=== PATIENT | male | born 1960 | race African-American/Black ===

== ENCOUNTER 2017-12-19 14:12 | Inpatient (IN) | payer OTHER ==
[2017-12-19 16:47] VITALS: BMI 19.5
[2017-12-19] MEDS ORDERED: MELATONIN 5 MG TABLETS PO PRN (22:00)
--- NOTE | 2017-12-19 22:20 | HP ---
CIWA Score - CIWA Score Nausea/Vomitin Muscle Tremors: 4-Moderate,w/Arms Extend Anxiety: 1-Mildly Anxious Agitation: 3 Paroxysmal Sweats: 3 Orientation: 3-Disoriented Date>2 days Tacttile Disturbances: 3-Moderate Itch/Numb/Burn Auditory Disturbances: 0-None Visual Disturbances: 1-Very Mild Sensitivity Headache: 2-Mild CIWA-Ar Total Score: 23 Admission ROS S - HPI Chief Complaint: C/O WITHDRAWAL SX'S. WOULD LIKE TO DETOX FROM ALCOHOL Allergies/Adverse Reactions: Allergies Allergy/AdvReac Type Severity Reaction Status Date / Time No Known Allergies Allergy Verified 12/19/17 17:06 History of Present Illness: 57 Y.O. MALE WITH LONG HX/O ALCOHOLISM HERE FOR DETOX. CLIENT IS KNOWN TO THIS PROGRAM. LAST HERE 11/24/2014-11/29/2014 WHERE HE LEFT AMA FOR PERSONAL REASONS. DENIES ANY INPATIENT TXMENT SINCE THEN. SELF REFERRED. DENIES ANY SIGNIFICANT CLEAN TIME/SOBRIETY. C/O WITHDRWAL SX'S NOTED CIWA 23. DENIES HX/O SEIZURES, PAST/PRESNT HX/O SI/HI, BLACKOUTS, PMHX: HIV, PSYCH: DENIES BUT FEELS DEPRESSED Exam Limitations: No Limitations - Ebola screening Have you traveled outside of the country in the last 21 days: No (N) Have you had contact with anyone from an Ebola affected area: No Have you been sick,other than usual withdrawal symptoms: No Do you have a fever: No - Review of Systems Constitutional: Chills, Loss of Appetite, Malaise (LEG CRAMPS), Night Sweats, Unintentional Wgt. Loss EENT: reports: No Symptoms Reported Respiratory: reports: No Symptoms reported Cardiac: reports: No Symptoms Reported GI: reports: Nausea, Vomiting : reports: No Symptoms Reported Musculoskeletal: reports: Back Pain (CHRONIC) Integumentary: reports: No Symptoms Reported Neuro: reports: No Symptoms reported Endocrine: reports: No Symptoms Reported Hematology: reports: No Symptoms Reported Psychiatric: reports: Depressed Other Systems: Reviewed and Negative Patient History - Patient Medical History Hx Anemia: No Hx Asthma: No Hx Chronic Obstructive Pulmonary Disease (COPD): No Hx Cancer: No Hx Cardiac Disorders: No Hx Congestive Heart Failure: No Hx Hypertension: No Hx Hypercholesterolemia: No Hx Pacemaker: No HX Cerebrovascular Accident: No Hx Seizures: No Hx Diabetes: No Hx Gastrointestinal Disorders: No Hx Liver Disease: No Hx Genitourinary Disorders: No Hx Sexually Transmitted Disorders: Yes (HIV + since 2002) Hx Renal Disease (ESRD): No Hx Thyroid Disease: No Hx Human Immunodeficiency Virus (HIV): Yes (dx'ed 2002 , last cd4 101, vl undetectable 11/01/14) Hx Hepatitis C: No Hx Depression: Yes Hx Suicide Attempt: No Hx Bipolar Disorder: No Hx Schizophrenia: No Other Medical History: DENIES - Patient Surgical History Past Surgical History: No Hx Neurologic Surgery: No Hx Cataract Extraction: No Hx Cardiac Surgery: No Hx Lung Surgery: No Hx Breast Surgery: No Hx Breast Biopsy: No Hx Abdominal Surgery: No Hx Appendectomy: No Hx Cholecystectomy: No Hx Genitourinary Surgery: No Hx Orthopedic Surgery: No Anesthesia Reaction: No - PPD History Previous Implant?: Yes Documented Results: Negative w/proof Implanted On Prior [facility] Admission?: Yes Date: 11/10/14 Results: 0mm PPD to be Administered?: Yes - Smoking Cessation Smoking history: Current every day smoker Have you smoked in the past 12 months: Yes Aproximately how many cigarettes per day: 9 Cigars Per Day: 0 Hx Chewing Tobacco Use: No Initiated information on smoking cessation: Yes 'Breaking Loose' booklet given: 12/19/17 - Substance & Tx. History Hx Alcohol Use: Yes Hx Substance Use: Yes Substance Use Type: Alcohol, Cocaine Hx Substance Use Treatment: Yes ([facility]) - Substances Abused Alcohol Route: Oral Frequency: Daily Amount used: liquor- 3 PINTS , beer- 2 six pack Age of first use: 15 Date of Last Use: 12/19/17 (2 PINTS) Crack Route: Smoking Frequency: Daily Amount used: 4 bags Age of first use: 37 Date of Last Use: 12/18/17 Family Disease History - Family Disease History Family Disease History: Diabetes: Brother (x2 2nd aids ), Sister, [place]: Father (brain tumor ), Other: Mother ( etoh related ) Admission Physical Exam S - Vital Signs Vital Signs: Vital Signs - 24 hr 12/19/17 16:45 Temperature 97.9 F Pulse Rate 90 Respiratory 19 Rate Blood Pressure 133/92 - Physical General Appearance: Yes: Appropriately Dressed, Moderate Distress, Thin, Tremorous, Anxious HEENTM: Yes: EOMI, Normocephalic, Normal Voice, PAPO, Pharynx Normal Respiratory: Yes: Chest Non-Tender, Lungs Clear, Normal Breath Sounds, No Respiratory Distress, No Accessory Muscle Use Neck: Yes: No masses,lesions,Nodules, Supple, Trachea in good position Breast: Yes: Breast Exam Deferred Cardiology: Yes: Regular Rhythm, Regular Rate, S1, S2 Abdominal: Yes: Non Tender, Soft, Protuberent Genitourinary: Yes: Other (NO C/O) Back: Yes: Normal Inspection Musculoskeletal: Yes: full range of Motion, Gait Steady, Back pain (CYHRONIC INTERMITTENT) Extremities: Yes: Normal Range of Motion, Non-Tender, Tremors Neurological: Yes: sales development consultant II-XII NML intact, Fully Oriented, Alert, Motor Strength 5/5, Depressed Affect Integumentary: Yes: Dry, Warm Lymphatic: Yes: Within Normal Limits - Diagnostic (1) Alcohol dependence with uncomplicated withdrawal Current Visit: Yes Status: Acute (2) Cocaine abuse, uncomplicated Current Visit: Yes Status: Chronic (3) Substance induced mood disorder Current Visit: Yes Status: Suspected (4) Weight loss Current Visit: Yes Status: Chronic (5) AIDS (acquired immune deficiency syndrome) Current Visit: Yes Status: Chronic (6) Nicotine dependence Current Visit: Yes Status: Chronic Qualifiers: Nicotine product type: cigarettes Substance use status: uncomplicated Qualified Code(s): F17.210 - Nicotine dependence, cigarettes, uncomplicated Cleared for Admission [facility] - Detox or Rehab [facility] Level of Care: Medically Managed Detox Regimen/Protocol: Librium Claeared for Rehab Admission: No S Breath Alcohol Content Breath Alcohol Content: 0.094 Urine Drug Screen - Results Drug Screen Negative: No Urine Drug Screen Results: JANNA-Cocaine
[2017-12-19] MEDS ORDERED: LOPERAMIDE HCL 2 MG CAPSULE PO PRN (22:31)
[2017-12-19] MEDS ORDERED: NICOTINE POLACRILEX 2 MG GUM BUC PRN (22:31)
[2017-12-19] MEDS ORDERED: IBUPROFEN 400 MG TABLET (FP) PO PRN (22:31)
[2017-12-19] MEDS ORDERED: hydrOXYzine PAMOATE 50 MG CAPSULE (FP) PO PRN (22:31)
[2017-12-19] MEDS ORDERED: MAG HYDROX/AL HYDROX/SIMETH 30 ML UNIT-DOSE CUP PO PRN (22:31)
[2017-12-19] MEDS ORDERED: ACETAMINOPHEN 325 MG TABLET (FP) PO PRN (22:31)
[2017-12-19] MEDS ORDERED: P-EPHED 60MG/TRIPROLIDI 2.5MG TABLET PO PRN (22:31)
[2017-12-19] MEDS ORDERED: MENTHOL/PHENOL 1 EACH UD MM PRN (22:31)
[2017-12-19] MEDS ORDERED: guaiFENesin/D-METHORPHAN HB 10 ML UNIT-DOSE CUPS PO PRN (22:31)
[2017-12-19] MEDS ORDERED: MAGNESIUM CITRATE 300 ML BOTTLE PO PRN (22:31)
[2017-12-19] MEDS ORDERED: chlordiazePOXIDE HCL 25 MG CAPSULE PO PRN (22:31)
[2017-12-19] MEDS ORDERED: MAGNESIUM HYDROX 2400MG/30ML ORAL SUSPENSION 30 ML CUP PO PRN (22:31)
[2017-12-19] MEDS: chlordiazePOXIDE HCL 25 MG CAPSULE PO SCH (23:35)
[2017-12-20] MEDS: chlordiazePOXIDE HCL 25 MG CAPSULE PO SCH ×4 (05:09→22:13)
[2017-12-20 09:50] LABS: HEMATOCRIT 44.3 % (35.4-49); MCH 37.5 pg (25.7-33.7); MCHC 33.9 g/dl (32.0-35.9); MEAN CELL VOLUME 110.8 fl (80-96); MEAN PLT VOLUME 8.5 fl (7.5-11.1); PLATELET COUNT 235 K/MM3 (134-434); RDW 12.5 % (11.9-15.9); WHITE BLOOD COUNT 4.7 K/mm3 (4.0-10.0)
[2017-12-20 09:56] LABS: URINE APPEARANCE CLEAR; URINE BILIRUBIN NEGATIVE (<2.0 mg/dL); URINE COLOR LTYELLOW; URINE GLUCOSE (UA) NEGATIVE (NEGATIVE); URINE KETONE NEGATIVE (NEGATIVE); URINE LEUK ESTERASE NEGATIVE (NEGATIVE); URINE NITRITE NEGATIVE (NEGATIVE); URINE UROBILINOGEN NEGATIVE mg/dL (0.2-1.0)
[2017-12-20 10:07] LABS: URINE PROTEIN 1+ (NEGATIVE)
[2017-12-20 10:09] LABS: URINE MUCUS RARE
[2017-12-20] MEDS: PRENATAL VITAMINS W/ FOLIC ACID TABLET (FP) PO SCH (10:16)
[2017-12-20] MEDS: NICOTINE 14 MG/24 HOURS TOPICAL PATCH TD SCH (10:17)
[2017-12-20 10:19] LABS: ALBUMIN 3.4 g/dl (3.4-5.0); ALK PHOS 63 U/L (45-117); ANION GAP 5 MMOL/L (8-16); BILIRUBIN,TOTAL 0.8 mg/dL (0.2-1.0); BLOOD UREA NITROGEN 10 mg/dL (7-18); CALCIUM 8.7 mg/dL (8.5-10.1); CHLORIDE 103 mmol/L (98-107); CO2 32 mmol/L (21-32); CREATININE 0.9 mg/dL (0.7-1.3); GLUCOSE,RANDOM 77 mg/dL (74-106); POTASSIUM 4.5 mmol/L (3.5-5.1); SGOT/AST 56 U/L (15-37); SGPT/ALT 30 U/L (12-78); SODIUM 140 mmol/L (136-145); TOT PROT 8.1 g/dl (6.4-8.2)
--- NOTE | 2017-12-20 10:59 | PN ---
S CIWA - CIWA Score Nausea/Vomitin-Mild Nausea/No Vomiting Muscle Tremors: 2 Anxiety: 1-Mildly Anxious Agitation: 1-Slight > Activity Paroxysmal Sweats: No Perspiration Orientation: 0-Oriented Tacttile Disturbances: 0-None Auditory Disturbances: 0-None Visual Disturbances: 0-None Headache: 0-None Present CIWA-Ar Total Score: 5 BHS Progress Note (SOAP) Subjective: pt would like ensure with meals, no other complaints obj: Vital Signs - 24 hr 12/19/17 12/19/17 12/20/17 16:45 23:39 00:30 Temperature 97.9 F 97.6 F Pulse Rate 90 82 Respiratory 19 18 18 Rate Blood Pressure 133/92 140/98 12/20/17 12/20/17 12/20/17 03:30 06:17 06:30 Temperature 97.7 F Pulse Rate 86 Respiratory 18 16 18 Rate Blood Pressure 126/78 Laboratory Tests 12/19/17 12/20/17 12/20/17 09:40 07:40 07:40 WBC 4.7 RBC 4.00 Hgb 15.0 Hct 44.3 MCV 110.8 H MCH 37.5 H MCHC 33.9 RDW 12.5 Plt Count 235 MPV 8.5 Sodium 140 Potassium 4.5 Chloride 103 Carbon Dioxide 32 Anion Gap 5 L BUN 10 Creatinine 0.9 Creat Clearance w eGFR > 60 Random Glucose 77 Calcium 8.7 Total Bilirubin 0.8 AST 56 H D ALT 30 D Alkaline Phosphatase 63 Total Protein 8.1 Albumin 3.4 Urine Color Ltyellow Urine Appearance Clear Urine pH 5.0 Ur Specific [place] 1.004 Urine Protein 1+ H Urine Glucose (UA) Negative Urine Ketones Negative Urine Blood 1+ H Urine Nitrite Negative Urine Bilirubin Negative Urine Urobilinogen Negative Ur Leukocyte Esterase Negative Urine WBC (Auto) 2 Urine RBC (Auto) None Urine Mucus Rare increased MCV Ass: continue alcohol detox protocol, wide MCV- will give B12. folic acid and enusre per pt request
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
--- NOTE | 2017-12-20 12:55 | PN ---
BHS Progress Note Note: received pharmacist called that the patient needed vitamin b12 serum level prior to begin po vitamin b12
[2017-12-20 13:21] LABS: RPR REACTIVE 1:8 (NONREACTIVE); TREPONEMA ANTIBODY PREVIOUSLY REACTIVE (NONREACTIVE)
[2017-12-20] MEDS: THIAMINE HCL 100 MG TABLET (FP) PO SCH (22:13)
[2017-12-21] MEDS: chlordiazePOXIDE HCL 25 MG CAPSULE PO SCH ×3 (05:09→17:42)
[2017-12-21] MEDS: NICOTINE 14 MG/24 HOURS TOPICAL PATCH TD SCH (10:13)
[2017-12-21] MEDS: CYANOCOBALAMIN 1,000 MCG TABLET (FP) PO SCH (10:13)
[2017-12-21] MEDS: PRENATAL VITAMINS W/ FOLIC ACID TABLET (FP) PO SCH (10:13)
--- NOTE | 2017-12-21 10:20 | PN ---
S CIWA - CIWA Score Nausea/Vomitin-No Nausea/No Vomiting Muscle Tremors: 2 Anxiety: 1-Mildly Anxious Agitation: 0-Normal Activity Paroxysmal Sweats: No Perspiration Orientation: 0-Oriented Tacttile Disturbances: 0-None Auditory Disturbances: 0-None Visual Disturbances: 0-None Headache: 0-None Present CIWA-Ar Total Score: 3 BHS Progress Note (SOAP) Subjective: pt states all is good, waiting to see O: Vital Signs - 24 hr 12/20/17 12/20/17 12/20/17 11:20 14:33 18:16 Temperature 97.4 F L 97.4 F L 98.3 F Pulse Rate 80 68 111 H Respiratory 16 20 18 Rate Blood Pressure 122/70 118/70 111/79 12/20/17 12/21/17 12/21/17 22:22 00:30 03:30 Temperature 98.9 F Pulse Rate 114 H Respiratory 16 18 18 Rate Blood Pressure 121/84 12/21/17 05:59 Temperature 99.9 F H Pulse Rate 94 H Respiratory 16 Rate Blood Pressure 120/71 Laboratory Tests 12/19/17 12/20/17 12/20/17 09:40 07:40 07:40 WBC 4.7 RBC 4.00 Hgb 15.0 Hct 44.3 MCV 110.8 H MCH 37.5 H MCHC 33.9 RDW 12.5 Plt Count 235 MPV 8.5 Sodium 140 Potassium 4.5 Chloride 103 Carbon Dioxide 32 Anion Gap 5 L BUN 10 Creatinine 0.9 Creat Clearance w eGFR > 60 Random Glucose 77 Calcium 8.7 Total Bilirubin 0.8 AST 56 H D ALT 30 D Alkaline Phosphatase 63 Total Protein 8.1 Albumin 3.4 Urine Color Ltyellow Urine Appearance Clear Urine pH 5.0 Ur Specific [place] 1.004 Urine Protein 1+ H Urine Glucose (UA) Negative Urine Ketones Negative Urine Blood 1+ H Urine Nitrite Negative Urine Bilirubin Negative Urine Urobilinogen Negative Ur Leukocyte Esterase Negative Urine WBC (Auto) 2 Urine RBC (Auto) None Urine Mucus Rare RPR Titer T.pallidum Ab ([facility]) 12/20/17 07:40 WBC RBC Hgb Hct MCV MCH MCHC RDW Plt Count MPV Sodium Potassium Chloride Carbon Dioxide Anion Gap BUN Creatinine Creat Clearance w eGFR Random Glucose Calcium Total Bilirubin AST ALT Alkaline Phosphatase Total Protein Albumin Urine Color Urine Appearance Urine pH Ur Specific [place] Urine Protein Urine Glucose (UA) Urine Ketones Urine Blood Urine Nitrite Urine Bilirubin Urine Urobilinogen Ur Leukocyte Esterase Urine WBC (Auto) Urine RBC (Auto) Urine Mucus RPR Titer Reactive 1:8 H T.pallidum Ab (A) Previously reactive ObJ: RPR pos- pt states was treated at [facility] last year, does not remember titer- a/p: continue detox protocol will give BCN X1 today
[2017-12-21] MEDS ORDERED: PENICILLIN G BENZATHINE 2,400,000 UNIT/4 ML PFS IM ONE (11:00)
[2017-12-21] MEDS: FOLIC ACID 1 MG TABLET (FP) PO SCH (15:13)
[2017-12-21] MEDS: THIAMINE HCL 100 MG TABLET (FP) PO SCH (22:04)
[2017-12-21] MEDS: chlordiazePOXIDE 5 MG CAPSULE PO SCH (22:04)
[2017-12-22] MEDS: chlordiazePOXIDE 5 MG CAPSULE PO SCH ×3 (05:24→17:44)
[2017-12-22] MEDS: PRENATAL VITAMINS W/ FOLIC ACID TABLET (FP) PO SCH (10:11)
[2017-12-22] MEDS: NICOTINE 14 MG/24 HOURS TOPICAL PATCH TD SCH (10:11)
[2017-12-22] MEDS: FOLIC ACID 1 MG TABLET (FP) PO SCH (10:11)
[2017-12-22] MEDS: CYANOCOBALAMIN 1,000 MCG TABLET (FP) PO SCH (10:11)
--- NOTE | 2017-12-22 10:18 | PN ---
BHS Progress Note (SOAP) Subjective: ANXIETY,SWEATS,DIARRHEA,FATIGUE. Objective: 12/22/17 10:17 Vital Signs 12/22/17 12/22/17 12/22/17 03:30 06:00 09:03 Temperature 97.1 F L 97.2 F L Pulse Rate 83 103 H Respiratory 18 16 20 Rate Blood Pressure 110/78 125/88 Laboratory Tests 12/19/17 12/20/17 12/20/17 09:40 07:40 07:40 WBC 4.7 RBC 4.00 Hgb 15.0 Hct 44.3 MCV 110.8 H MCH 37.5 H MCHC 33.9 RDW 12.5 Plt Count 235 MPV 8.5 Sodium 140 Potassium 4.5 Chloride 103 Carbon Dioxide 32 Anion Gap 5 L BUN 10 Creatinine 0.9 Creat Clearance w eGFR > 60 Random Glucose 77 Calcium 8.7 Total Bilirubin 0.8 AST 56 H D ALT 30 D Alkaline Phosphatase 63 Total Protein 8.1 Albumin 3.4 Vitamin B12 Urine Color Ltyellow Urine Appearance Clear Urine pH 5.0 Ur Specific [place] 1.004 Urine Protein 1+ H Urine Glucose (UA) Negative Urine Ketones Negative Urine Blood 1+ H Urine Nitrite Negative Urine Bilirubin Negative Urine Urobilinogen Negative Ur Leukocyte Esterase Negative Urine WBC (Auto) 2 Urine RBC (Auto) None Urine Mucus Rare RPR Titer T.pallidum Ab ([facility]) 12/20/17 12/21/17 07:40 07:40 WBC RBC Hgb Hct MCV MCH MCHC RDW Plt Count MPV Sodium Potassium Chloride Carbon Dioxide Anion Gap BUN Creatinine Creat Clearance w eGFR Random Glucose Calcium Total Bilirubin AST ALT Alkaline Phosphatase Total Protein Albumin Vitamin B12 542 Urine Color Urine Appearance Urine pH Ur Specific [place] Urine Protein Urine Glucose (UA) Urine Ketones Urine Blood Urine Nitrite Urine Bilirubin Urine Urobilinogen Ur Leukocyte Esterase Urine WBC (Auto) Urine RBC (Auto) Urine Mucus RPR Titer Reactive 1:8 H T.pallidum Ab ([facility]) Previously reactive RPR/ LABS NOTED TREATED Assessment: 12/22/17 10:17 WITHDRAWAL SX Plan: CONTINUE DETOX
--- NOTE | 2017-12-22 14:21 | EKG ---
Test Reason : Blood Pressure : / mmHG Vent. Rate : 074 BPM Atrial Rate : 074 BPM P-R Int : 128 ms QRS Dur : 082 ms QT Int : 376 ms P-R-T Axes : 075 076 076 degrees QTc Int : 417 ms NORMAL SINUS RHYTHM WITH SINUS ARRHYTHMIA NORMAL ECG NO PREVIOUS ECGS AVAILABLE Confirmed by JOAQUÍN LEWIS MD ([id number]) on 12/22/2017 2:21:10 PM Referred By: Confirmed By:JOAQUÍN LEWIS MD
[2017-12-22] MEDS: chlordiazePOXIDE HCL 10 MG CAPSULE PO SCH (22:12)
[2017-12-22] MEDS: THIAMINE HCL 100 MG TABLET (FP) PO SCH (22:12)
[2017-12-23] MEDS: chlordiazePOXIDE HCL 10 MG CAPSULE PO SCH (05:13)
[2017-12-23 09:37] VITALS: BP 133/93; PULSE 116; TEMP 98
[2017-12-23] MEDS ORDERED: SULFAMETHOXAZOLE/TRIMETHOPRIM 800MG/160MG D.S. TABLET PO SCH (10:00)
[2017-12-23] MEDS ORDERED: CHOLECALCIFEROL (VITAMIN D3) 1,000 UNIT TABLET (FP) PO SCH (10:00)
[2017-12-23] MEDS: NICOTINE 14 MG/24 HOURS TOPICAL PATCH TD SCH (10:09)
[2017-12-23] MEDS: CYANOCOBALAMIN 1,000 MCG TABLET (FP) PO SCH (10:09)
[2017-12-23] MEDS: PRENATAL VITAMINS W/ FOLIC ACID TABLET (FP) PO SCH (10:09)
[2017-12-23] MEDS: FOLIC ACID 1 MG TABLET (FP) PO SCH (10:09)
--- NOTE | 2017-12-23 10:17 | PN ---
BHS Progress Note (SOAP) Subjective: DETOX COMPLETED. ALERT O X 3. PT REPORTS HE HAS PRIMARY CARE AT [facility] IN [place], [place] FOR MEDICAL MANAGEMENT. REPORTS HE HAS OWN MEDS. Objective: 12/23/17 10:17 Vital Signs 12/23/17 12/23/17 12/23/17 03:30 05:52 06:30 Temperature 97.5 F L Pulse Rate 91 H Respiratory 18 18 18 Rate Blood Pressure 116/83 12/23/17 09:36 Temperature 98.0 F Pulse Rate 116 H Respiratory 16 Rate Blood Pressure 133/93 Laboratory Tests 12/19/17 12/20/17 12/20/17 09:40 07:40 07:40 WBC 4.7 RBC 4.00 Hgb 15.0 Hct 44.3 MCV 110.8 H MCH 37.5 H MCHC 33.9 RDW 12.5 Plt Count 235 MPV 8.5 Sodium 140 Potassium 4.5 Chloride 103 Carbon Dioxide 32 Anion Gap 5 L BUN 10 Creatinine 0.9 Creat Clearance w eGFR > 60 Random Glucose 77 Calcium 8.7 Total Bilirubin 0.8 AST 56 H D ALT 30 D Alkaline Phosphatase 63 Total Protein 8.1 Albumin 3.4 Vitamin B12 Urine Color Ltyellow Urine Appearance Clear Urine pH 5.0 Ur Specific [place] 1.004 Urine Protein 1+ H Urine Glucose (UA) Negative Urine Ketones Negative Urine Blood 1+ H Urine Nitrite Negative Urine Bilirubin Negative Urine Urobilinogen Negative Ur Leukocyte Esterase Negative Urine WBC (Auto) 2 Urine RBC (Auto) None Urine Mucus Rare RPR Titer T.pallidum Ab ([facility]) 12/20/17 12/21/17 07:40 07:40 WBC RBC Hgb Hct MCV MCH MCHC RDW Plt Count MPV Sodium Potassium Chloride Carbon Dioxide Anion Gap BUN Creatinine Creat Clearance w eGFR Random Glucose Calcium Total Bilirubin AST ALT Alkaline Phosphatase Total Protein Albumin Vitamin B12 542 Urine Color Urine Appearance Urine pH Ur Specific [place] Urine Protein Urine Glucose (UA) Urine Ketones Urine Blood Urine Nitrite Urine Bilirubin Urine Urobilinogen Ur Leukocyte Esterase Urine WBC (Auto) Urine RBC (Auto) Urine Mucus RPR Titer Reactive 1:8 H T.pallidum Ab ([facility]) Previously reactive Assessment: 12/23/17 10:17 MEDICALLY STABLE Plan: D/C PT TODAY. FOLLOW UP WITH REHAB REFERRAL
--- NOTE | 2017-12-23 10:19 | DS ---
[facility] Detox Discharge Summary Admission Date: 12/19/17 Discharge Date: 12/23/17 - History Present History: Alcohol Dependence, Cocaine Dependence Additional Comments: DETOX COMPLETED. ALERT O X 3. Pertinent Past History: PLEASE SEE DX BELOW - Physical Exam Results Vital Signs: Vital Signs Temperature 98.0 F 12/23/17 09:36 Pulse Rate 116 H 12/23/17 09:36 Respiratory Rate 16 12/23/17 09:36 Blood Pressure 133/93 12/23/17 09:36 O2 Sat by Pulse Oximetry (%) Pertinent Admission Physical Exam Findings: WITHDRAWAL SX Laboratory Tests 12/19/17 12/20/17 12/20/17 09:40 07:40 07:40 WBC 4.7 RBC 4.00 Hgb 15.0 Hct 44.3 MCV 110.8 H MCH 37.5 H MCHC 33.9 RDW 12.5 Plt Count 235 MPV 8.5 Sodium 140 Potassium 4.5 Chloride 103 Carbon Dioxide 32 Anion Gap 5 L BUN 10 Creatinine 0.9 Creat Clearance w eGFR > 60 Random Glucose 77 Calcium 8.7 Total Bilirubin 0.8 AST 56 H D ALT 30 D Alkaline Phosphatase 63 Total Protein 8.1 Albumin 3.4 Vitamin B12 Urine Color Ltyellow Urine Appearance Clear Urine pH 5.0 Ur Specific [place] 1.004 Urine Protein 1+ H Urine Glucose (UA) Negative Urine Ketones Negative Urine Blood 1+ H Urine Nitrite Negative Urine Bilirubin Negative Urine Urobilinogen Negative Ur Leukocyte Esterase Negative Urine WBC (Auto) 2 Urine RBC (Auto) None Urine Mucus Rare RPR Titer T.pallidum Ab (A) 12/20/17 12/21/17 07:40 07:40 WBC RBC Hgb Hct MCV MCH MCHC RDW Plt Count MPV Sodium Potassium Chloride Carbon Dioxide Anion Gap BUN Creatinine Creat Clearance w eGFR Random Glucose Calcium Total Bilirubin AST ALT Alkaline Phosphatase Total Protein Albumin Vitamin B12 542 Urine Color Urine Appearance Urine pH Ur Specific [place] Urine Protein Urine Glucose (UA) Urine Ketones Urine Blood Urine Nitrite Urine Bilirubin Urine Urobilinogen Ur Leukocyte Esterase Urine WBC (Auto) Urine RBC (Auto) Urine Mucus RPR Titer Reactive 1:8 H T.pallidum Ab ([facility]) Previously reactive - Treatment Hospital Course: Detox Protocol Followed, Detoxed Safely, Responded well, Discharged Condition Good - Medication Discharge Medications: Ambulatory Orders Abacavir/Dolutegravir/Lamivudi [Triumeq Tablet] 1 each PO DAILY 12/19/17 Aspirin [ASA -] 81 mg PO DAILY 12/19/17 Cholecalciferol (Vitamin D3) [Vitamin D3 -] 1,000 unit PO DAILY 12/19/17 Sulfamethoxazole/Trimethoprim [Sulfamethoxazole-Tmp Ds Tablet] 1 each PO DAILY 12/19/17 - Diagnosis (1) Alcohol dependence with uncomplicated withdrawal Current Visit: Yes Status: Acute (2) Cocaine dependence Current Visit: Yes Status: Acute Qualifiers: Substance use status: uncomplicated Qualified Code(s): F14.20 - Cocaine dependence, uncomplicated (3) Nicotine dependence Current Visit: Yes Status: Acute Qualifiers: Nicotine product type: cigarettes Substance use status: in withdrawal Qualified Code(s): F17.213 - Nicotine dependence, cigarettes, with withdrawal (4) AIDS (acquired immune deficiency syndrome) Current Visit: Yes Status: Chronic (5) Weight loss Current Visit: Yes Status: Chronic - AMA Did Patient Leave Against Medical Advice: No
== END 2017-12-23 10:40 | disposition home or self-care (01) | DRG 774 ==
LOC: YASAS 14:12 → Y3N 18:05
PROC: HZ2ZZZZ Detoxification Services for Substance Abuse Treatment (ICD-10-PCS; principal; 2017-12-19)
DX: F10.230 Alcohol dependence with withdrawal, uncomplicated (principal); F14.20 Cocaine dependence, uncomplicated; F17.213 Nicotine dependence, cigarettes, with withdrawal; F19.24 Other psychoactive substance dependence with psychoactive substance-induced mood disorder; B20 Human immunodeficiency virus [HIV] disease; A53.0 Latent syphilis, unspecified as early or late; R63.4 Abnormal weight loss; Z68.1 Body mass index [BMI] 19.9 or less, adult
CPT/HCPCS: 36415; 80053; 81003; 81015; 82607; 85027; 86593; 86780; 93005; 93010